=== PATIENT | female | born 1980 | race Caucasian/White ===

== ENCOUNTER → 2017-11-23 | Outpatient (CLI) | payer OTHER ==
--- NOTE | 2017-11-23 13:04 | DIAGNOSTIC IMAGING REPORT ---
EXTREMITY NONVASCULAR LIMITED HISTORY: 37 years-old Female LUMP AXILLA RIGHT palpable abnormality of the right axilla COMPARISON: Ultrasound of the neck 06/17/2015 TECHNIQUE: Multiple real-time sonographic images of the right axilla were obtained assessing grayscale appearance and color flow FINDINGS/IMPRESSION: Within the right axilla there is a focal ovoid area which is isoechoic to adjacent subcutaneous fat with ill-defined margins, 3.1 x 3.2 x 1.2 cm which may reflect a subcutaneous lipoma. No pathologic-appearing adenopathy within the axilla. No drainable fluid collections. The above report was generated using voice recognition software. It may contain grammatical, syntax or spelling errors. Electronically signed by: Yeyo Ariza M.D. 11/23/2017 1:03 PM Dictated Date/Time: 11/23/2017 12:47 PM
== END | disposition home or self-care (01) ==
LOC: C.ULTR 12:01
PROVIDERS: ATTEND Physician Assistant Medical
DX: R22.31 Localized swelling, mass and lump, right upper limb (principal)

== ENCOUNTER → 2018-01-07 | Outpatient (CLI) | payer OTHER ==
[2018-01-07 10:16] LABS: BASO % 0.2 %; BASO ABS # 0.02 K/uL (0-0.2); EOS % 0.5 %; EOS ABS # 0.05 K/uL (0-0.5); HEMATOCRIT 40.7 % (37-47); HEMOGLOBIN 14.9 g/dL (12.0-16.0); IG# 0.04 K/uL (0.00-0.02); LYMPH % 26.5 %; LYMPH ABS # 2.88 K/uL (1.2-3.4); MEAN CORPUSCULAR HEMOGLOBIN 31.8 pg (25-34); MEAN CORPUSCULAR HGB CONC 36.6 g/dl (32-36); MEAN PLATELET VOLUME 9.7 fL (7.4-10.4); MONO % 4.1 %; MONO ABS # 0.45 K/uL (0.11-0.59); NEUT % 68.3 %; NEUT ABS # 7.41 K/uL (1.4-6.5); PLATELET COUNT 280 K/uL (130-400); RED CELL DISTRIBUTION WIDTH CV 12.3 % (11.5-14.5); WHITE BLOOD COUNT 10.85 K/uL (4.8-10.8)
[2018-01-07 10:30] LABS: HEMOGLOBIN A1C 7.8 % (4.5-5.6)
[2018-01-07 10:53] LABS: ALBUMIN 3.9 gm/dl (3.4-5.0); ALT/SGPT 81 U/L (12-78); AST/SGOT 48 U/L (15-37); BLOOD UREA NITROGEN 10 mg/dl (7-18); CALCIUM 8.8 mg/dl (8.5-10.1); CARBON DIOXIDE 25 mmol/L (21-32); CREATININE 0.75 mg/dl (0.60-1.20); GLUCOSE 184 mg/dl (70-99); POTASSIUM 4.1 mmol/L (3.5-5.1); SODIUM 136 mmol/L (136-145)
[2018-01-07 11:04] LABS: ALKALINE PHOSPHATASE 81 U/L (45-117); TOTAL PROTEIN 7.3 gm/dl (6.4-8.2)
== END | disposition home or self-care (01) ==
LOC: C.LAB1850 09:09
PROVIDERS: ATTEND Nurse Practitioner Adult Health
DX: E78.5 Hyperlipidemia, unspecified (principal); E11.9 Type 2 diabetes mellitus without complications; R53.83 Other fatigue; N92.0 Excessive and frequent menstruation with regular cycle; E55.9 Vitamin D deficiency, unspecified

== ENCOUNTER → 2018-02-05 | Outpatient (CLI) | payer OTHER ==
[2018-02-05 10:03] LABS: CREATININE RANDOM URINE 83.8 mg/dl
== END | disposition home or self-care (01) ==
LOC: C.LAB1850 08:16
PROVIDERS: ATTEND Nurse Practitioner Adult Health
DX: E78.5 Hyperlipidemia, unspecified (principal)